=== PATIENT | female | born 1980 | race African-American/Black ===

== ENCOUNTER 2019-12-11 16:36 | Emergency (ER) | payer OTHER ==
[~2019-12-11] VITALS: Ht 157.5 cm; Wt 79.4 kg
== END 2019-12-12 13:04 | disposition home or self-care (01) ==
LOC: ER 16:36
DX: R07.89 Other chest pain (principal); R09.02 Hypoxemia; T75.1XXA Unspecified effects of drowning and nonfatal submersion, initial encounter; W69.XXXA Accidental drowning and submersion while in natural water, initial encounter; Y93.89 Activity, other specified; Y92.832 Beach as the place of occurrence of the external cause; Y99.8 Other external cause status; Z03.818 Encounter for observation for suspected exposure to other biological agents ruled out